=== PATIENT | male | born 1950 ===

== ENCOUNTER 2016-10-17 17:07 | Emergency (ER) | payer MEDICARE ==
[2016-10-17] MEDS ORDERED: Sodium Chloride 0.9% 500 ML IV ONE (17:54)
--- NOTE | 2016-10-17 17:56 | C.PDOC ---
History Of Present Illness 66 year old male with a Hx of diabetes and hypotension who presents to the ER with a complaint of vomiting and dizziness. Patient states he has vomited 6-7 times since last night; denies abdominal pain, fever, or chills. Dizziness increases with movement. No head ache, no CP, no SOB Time Seen by Provider: 10/17/16 17:46 Chief Complaint (Nursing): GI Problem History Per: Patient History/Exam Limitations: no limitations Onset/Duration Of Symptoms: Hrs Current Symptoms Are (Timing): Still Present Quality Of Discomfort: Unable To Describe Associated Symptoms: Vomiting, Other (Dizziness). denies: Fever, Chills Exacerbating Factors: None Alleviating Factors: None Recent travel outside of the [place]: No Past Medical History Reviewed: Historical Data, Nursing Documentation, Vital Signs Vital Signs: Last Vital Signs Temp 98.2 F 10/17/16 17:10 Pulse 71 10/17/16 17:10 Resp 18 10/17/16 17:10 BP 159/92 H 10/17/16 17:10 Pulse Ox 97 10/17/16 18:01 - Medical History PMH: No Chronic Diseases Surgical History: Appendectomy Family History: States: Unknown Family Hx - Social History Hx Alcohol Use: Yes Hx Substance Use: No - Immunization History Hx Tetanus Toxoid Vaccination: No Hx Influenza Vaccination: No Hx Pneumococcal Vaccination: No Review Of Systems Constitutional: Negative for: Fever, Chills Gastrointestinal: Positive for: Vomiting. Negative for: Abdominal Pain Neurological: Positive for: Dizziness Physical Exam - Physical Exam Appears: Non-toxic Skin: Normal Color, Warm, Dry Head: Atraumatic, Normacephalic Ear(s): Bilateral: Normal Oral Mucosa: Dry Chest: Symmetrical, No Tenderness Cardiovascular: Rhythm Regular, No Murmur Respiratory: Normal Breath Sounds, No Rales, No Rhonchi, No Wheezing Gastrointestinal/Abdominal: Soft, No Tenderness Neurological/Psych: Oriented x3, Normal Speech, Normal Cognition ED Course And Treatment - Laboratory Results Result Diagrams: 10/17/16 18:00 10/17/16 18:00 O2 Sat by Pulse Oximetry: 97 (Room air) Pulse Ox Interpretation: Normal Medical Decision Making Medical Decision Making: Plan: * Blood work * Urinalysis * Pepcid * Zofran * IV fluids Disposition - Disposition Disposition Time: 18:46 Condition: STABLE - Clinical Impression Clinical Impression: Vertigo - Scribe Statement The provider has reviewed the documentation as recorded by the Scribe Raman Troncoso All medical record entries made by the Scribe were at my direction and personally dictated by me. I have reviewed the chart and agree that the record accurately reflects my personal performance of the history, physical exam, medical decision making, and the department course for this patient. I have also personally directed, reviewed, and agree with the discharge instructions and disposition. Physician Patient Turnover Patient Signed Over To: Mari Felder Handoff Comments: Patient with NV, dizziness, possible vertigo. Pending IV hydration, labs, re-eval.
[2016-10-17 18:03] LABS: BASO % 0.5 % (0.0-2.0); EOS # 0.3 K/uL (0.0-0.7); EOS % 4.4 % (0.0-4.0); HEMOGLOBIN 16.6 g/dL (12.0-18.0); LYMPH # 0.8 K/uL (1.0-4.3); MEAN CELL VOLUME 90.5 fL (80.0-94.0); MEAN CORPUSCULAR HEMOGLOBIN 29.7 pg (27.0-31.0); MEAN CORPUSCULAR HGB CONC 32.9 g/dL (33.0-37.0); MEAN PLATELET VOLUME 9.5 fL (7.2-11.7); MONO # 0.3 K/uL (0.0-0.8); MONO % 4.6 % (0.0-10.0); NEUT # 5.3 K/uL (1.8-7.0); NEUT % 78.5 % (50.0-75.0); RBC 5.59 Mil/uL (4.40-5.90); RED CELL DISTRIBUTION WIDTH 12.9 % (11.5-14.5); WHITE BLOOD COUNT 6.7 K/uL (4.8-10.8)
[2016-10-17 18:14] LABS: GFR AFRICAN-AMERICAN > 60; GFR NON-AFRICAN AMERICAN > 60
[2016-10-17 18:15] LABS: ALB/GLOB RATIO 1.4 (1.0-2.1); ALT/SGPT 40 U/L (21-72); AST/SGOT 21 U/L (17-59); BLOOD UREA NITROGEN 15 mg/dL (9-20); CALCIUM 9.2 mg/dl (8.6-10.4)
[2016-10-17 18:22] LABS: URINE BILIRUBIN NEGATIVE (NEGATIVE); URINE BLOOD NEGATIVE (NEGATIVE); URINE CLARITY Clear (Clear); URINE COLOR Yellow (YELLOW); URINE GLUCOSE (UA) 1+ mg/dL (Normal); URINE LEUKOCYTE ESTERASE NEG Leu/uL (Negative); URINE NITRATE NEGATIVE (NEGATIVE); URINE PROTEIN NEGATIVE (NEGATIVE); URINE UROBILINOGEN NORMAL mg/dL (0.2-1.0)
[2016-10-17] MEDS ORDERED: Sodium Chloride 0.9% 1,000 ML ONE (18:31)
[2016-10-17 19:48] VITALS: TEMP 97.6; O2SAT 98
[2016-10-17 21:16] VITALS: BP 154/88; PULSE 60; RESP 20
== END 2016-10-17 21:18 | disposition home or self-care (01) ==
LOC: C.ER 17:07
DX: R42 Dizziness and giddiness (principal)
CPT/HCPCS: 80053; 81001; 85025; 96361; 96374; 96375; 99285; J2405; J7040